=== PATIENT | female | born 1980 | race Hispanic/Latino ===

== ENCOUNTER 2016-07-31 10:52 | Emergency (ER) | payer MEDICAID ==
[2016-07-31] MEDS ORDERED: HYDROcodone/APAP 5/325 MG 1 TAB TABLET PO ONE (11:24)
--- NOTE | 2016-07-31 11:39 | RADIOLOGY REPORT ---
EXAM:CALCANEUS-RT INDICATION: Right heel injury and pain. COMPARISON:None TECHNIQUE:2 views were obtained of the right calcaneus. FINDINGS: No fracture or bony lesion is demonstrated. Adjacent soft tissues appear grossly unremarkab le. The subtalar joint alignment is normal. IMPRESSION:Intact right calcaneus. . Final Electronic Signature: This report was electronically signed by Robert Mcdonald MD on 07/31/2016 11:36 AM. will /
--- NOTE | 2016-07-31 11:40 | RADIOLOGY REPORT ---
HISTORY: Right heel trauma. COMPARISON: None. FINDINGS: Three views of the foot obtained. There is no fracture. There is no lytic or sclerotic lesion. The re is no soft tissue swelling. Joint spaces are adequately maintained and in anatomic alignment. No opaque foreign body or pathologic soft tissue calcifications. IMPRESSION: Negative right foot. Final Electronic Signature: This report was electronically signed by Balbir Rodriguez MD on 07/31/2016 11: 38 AM. [facility] /
--- NOTE | 2016-07-31 12:01 | ER PHYSICIAN DOCUMENTATION ---
Physician Documentation [facility] Name:Sagrario Bennett Age:36 yrs Sex:Female :1980 Arrival Date:07/31/2016 Time:10:52 Bed6 Private MD:Tracie, Provider ED Cuauhtemoc Mata Disposition: 07/31/16 11:43 Discharged to Home/Self Care. Impression: Foot Contusion. - Condition is Good. - Discharge Instructions: CONTUSION, Foot. - Prescriptions for Hydrocodone- Acetaminophen 5-325 mg Oral Tablet - take 1 tablet by ORAL route every 6 hours As needed; 20 tablet. - Medical Reconciliation form form. - Follow up: Chiki Comer DO; When: As needed; Reason: Continuance of care. - Problem is new. - Symptoms have improved. HPI: 07/31 11:00 This 36 yrs old Female presents to ER via Private Vehicle with complaints of jm Ankle Injury - R. 11:00 The patient presents with an injury, pain. The complaints affect the lateral side of jm right heel and medial aspect of right heel and lateral side of right foot. Onset: The symptom(s)/episode began/occurred 3 day(s) ago. Context: resulted from jumping into a shallow pool, The patient can partially bear weight on the affected extremity. Associated signs and symptoms: Pertinent negatives: swelling, warmth. The patient has not experienced similar symptoms in the past. Historical: - Allergies: Motrin; - Home Meds: 1. Melatonin Oral - PMHx: None; - PSHx: None; - Tetanus: < 10 years. - Ebola Screening: : Patient denies exposure to infectious person. Patient denies travel to an Ebola-affected area in the 21 days before illness onset. . - Social history: Smoking status: Patient uses tobacco products, current some day smoker. Patient uses alcohol. ROS: 11:00 Constitutional: Negative for fatigue, fever. 11:00 MS/extremity: Positive for injury or acute deformity, decreased range of motion. 11:00 Skin: Negative for swelling. 11:00 All other systems are negative. Exam: 11:00 Constitutional: The patient appears alert, awake, comfortable. 11:00 Cardiovascular: Rate: normal, Rhythm: regular. 11:00 Respiratory: Respirations: normal, Breath sounds: are normal. 11:00 Musculoskeletal/extremity: Extremities: grossly normal except: noted in the medial aspect of right heel and lateral side of right foot and lateral side of right heel: tenderness, There is no evidence of ecchymosis, erythema, swelling, Pulses: are normal with no appreciated deficits, Sensation intact. Weight bearing: can bear weight with assistance only, uses crutch. 11:00 Skin: Appearance: Color: pink, injury, is not appreciated. Vital Signs: 10:59 BP 128 / 77 RA Sitting (auto/reg); Pulse 62 LA; Resp 18 S; Temp 97.9(O); Pulse Ox 92% em3 on R/A; Weight 56.7 kg (R); Height 5 ft. 2 in. (157.48 cm) (R); Pain 9/10; 10:59 Body Mass Index 22.86 (56.70 kg, 157.48 cm) em3 MDM: 11:00 Patient medically screened. olena 13:39 Differential diagnosis: fracture, sprain, contusion. Data reviewed: vital signs, nurses jm notes, radiologic studies, and as a result, I will discharge patient. Counseling: I had a detailed discussion with the patient and/or guardian regarding: the historical points, exam findings, and any diagnostic results supporting the discharge/admit diagnosis, radiology results, the need for outpatient follow up, with the patient's primary care provider. ED course: NO fx noted. Pt given crutches and DC'd home w dx of contusion. . 07/31 11:40 Order name: CALCANEUS; [address] [place] [id number] EDMS 07/31 11:41 Order name: FOOT;[address] [place] [id number] EDMS Dispensed Medications: 11:12 Drug: HYDROcodone-acetaminophen 5 mg-325 mg 1 tabs; Route: PO; st 12:00 Follow up: Response: No adverse reaction sc1 Signatures: Claritza Davis RN RN st Campbell, Sandy, RN RN sc1 Cuauhtemoc Mata MD MD jm
--- NOTE | 2016-07-31 12:01 | ER NURSING DOCUMENTATION ---
Nurse's Notes [facility] Name:Sagrario Bennett Age:36 yrs Sex:Female :1980 Arrival Date:07/31/2016 Time:10:52 Bed6 Private MD:Tracie, Provider Diagnosis:Foot Contusion Presentation: 07/31 11:01 Presenting complaint: Patient states: pt jumped into shallow water seven days ago and st landed hard on her right heal. she has had increasing right foot pain and heal pain since. The pain is worst with walking and is excruciating by the end of the day. Transition of care: Home. Care prior to arrival: None. 11:01 Acuity: HOSSEIN 3 st 11:01 Method Of Arrival: Private Vehicle st Triage Assessment: 11:04 General: Appears in no apparent distress, Behavior is cooperative. Pain: Complains of st pain in lateral side of right foot and medial aspect of right heel Pain currently is 9 out of 10 on a pain scale. Pain began one week ago Aggravated by weight bearing. Neuro: No deficits noted. Cardiovascular: No deficits noted. Respiratory: No deficits noted. GI: No deficits noted. Musculoskeletal: Swelling absent Tenderness present in lateral side of right foot and lateral side of right heel. Injury Description:. Historical: - Allergies: Motrin; - Home Meds: 1. Melatonin Oral - PMHx: None; - PSHx: None; - Tetanus: < 10 years. - Ebola Screening: : Patient denies exposure to infectious person. Patient denies travel to an Ebola-affected area in the 21 days before illness onset. . - Social history: Smoking status: Patient uses tobacco products, current some day smoker. Patient uses alcohol. Screenin:06 Infectious Disease Risk None. Abuse screen: Denies threats or abuse. Denies injuries st from another. pt feels safe at home. Nutritional screening: No deficits noted. Vital Signs: 10:59 BP 128 / 77 RA Sitting (auto/reg); Pulse 62 LA; Resp 18 S; Temp 97.9(O); Pulse Ox 92% em3 on R/A; Weight 56.7 kg (R); Height 5 ft. 2 in. (157.48 cm) (R); Pain 9/10; 10:59 Body Mass Index 22.86 (56.70 kg, 157.48 cm) em3 ED Course: 10:54 Patient arrived in ED. ama 10:54 Tracie, Provider is Private Physician. ama 11:00 Cuauhtemoc Mata MD is Attending Physician. 11:00 Valuables Remains with patient Patient has correct armband on for positive em3 identification. Bed in low position. Call light in reach. Side rails up X 1. Ice pack to injury. 11:01 Claritza Davis, RN is Primary Nurse. st 11:[address] 11:43 Chiki Comer DO is Referral Physician. 11:59 Crutch training done. [facility] [place] Administered Medications: 11:12 Drug: HYDROcodone-acetaminophen 5 mg-325 mg 1 tabs; Route: PO; st 12:00 Follow up: Response: No adverse reaction [facility] [place] Outcome: 11:43 Discharge ordered by . 11:59 Discharged to home ambulatory, with crutches. [facility] [place] 11:59 Condition: stable 11:59 Discharge instructions given to patient, Instructed on discharge instructions, follow up and referral plans. Demonstrated understanding of instructions, crutch walking, medications, Prescriptions given X 1. 12:01 Patient left the ED. [facility] [place] 06/ 11:59 Discharge F/U Call: Unable to reach: no answer st Signatures: Claritza Davis RN RN st Campbell, Sandy, RN RN mo1 Cuauhtemoc Mata MD MD jm Abbott, Micha Haskins 3 Gilson Underwood, Reg Reg ama
== END 2016-07-31 12:01 | disposition home or self-care (01) ==
LOC: ER 10:52
DX: S90.31XA Contusion of right foot, initial encounter (principal); W16.522A Jumping or diving into swimming pool striking bottom causing other injury, initial encounter; Y92.34 Swimming pool (public) as the place of occurrence of the external cause; Y93.19 Activity, other involving water and watercraft; F17.210 Nicotine dependence, cigarettes, uncomplicated
CPT/HCPCS: 99283